=== PATIENT | male | born 1985 | race Caucasian/White ===

== ENCOUNTER → 2016-12-05 | Outpatient (CLI) | payer BC | LOC: RAD 10:45 | DX: Z53.9 Procedure and treatment not carried out, unspecified reason (principal) | CPT/HCPCS: 74022 ==

== ENCOUNTER → 2019-02-24 | Outpatient (CLI) | payer BC ==
--- NOTE | 2019-02-25 10:06 | Pediatric Echocardiogram ---
Peds Echocardiography Report [facility] at [facility] Referring Physician: PCP: Dr. Sherif Chang MD: Dr Christiano Arias Initial study Indications: Cardiac murmur Study Date: February 24, 2019 Performed by: Two Dimensional Data (cm) LV end diastolic dimension: 4.3 LV end systolic dimension: 2.4 Fractional shortenin% LV posterior wall thickness diastolic: 0.6 Interventricular Septum diastolic thickness: 0.5 RV end diastolic dimension: 1.7 Aortic sinuses diameter: 1.9 Left atrial diameter long axis: 2.3 LV Ejection fraction (Teichholz method): 66% Additional 2-D data: None Doppler Velocity Data (M/sec) Aortic systolic: 1.24 Pulmonic systolic: 1.1 Pulmonic diastolic: 0.7 Mitral diastolic: 1.0 e wave Tricuspid systolic: 2.3 Tricuspid diastolic: 0.7 Additional Doppler data: Descending aorta 1.4 COLOR FLOW MAPPING: shows no abnormal valvular regurgitation or shunting. A slitlike patent foramen is present with normal shunting. No abnormal turbulence. Comments: Echo windows were unsatisfactory. Nevertheless this study is satisfactory for diagnostic purpose. Pulmonary and systemic venous returns are normal. Atrial situs solitus with normal atrioventricular and ventriculoarterial relationships. Normal dimensional data. Normal ventricular ejection performances. Intact atrial septum other than a normal slitlike patent foramen Intact ventricular septum. Normal valvar morphology and transvalvar velocities, with a normal LV filling pattern. No pathologic valvar incompetence. The coronary arteries appear to be normal in terms of origin, distribution, and caliber. Normal left sided aortic arch. The branching pattern was not defined. No PDA No abnormal pericardial fluid collection Impression: Normal echocardiogram with normal patent foramen shown and no abnormal shunting. This echo does not require follow-up and should be considered a normal variant MTDD
== END ==
LOC: RAD 15:09
PROVIDERS: ATTEND Pediatrics Pediatric Cardiology
DX: Z53.9 Procedure and treatment not carried out, unspecified reason (principal)